=== PATIENT | female | born 1965 | race Caucasian/White ===

== ENCOUNTER 2017-07-18 17:25 | Inpatient (IN) | payer MEDICAID ==
[~2017-07-18] VITALS: Ht 167.6 cm; Wt 95.5 kg
[2017-07-18] MEDS ORDERED: METF500T4 PO (17:39)
[2017-07-18] MEDS ORDERED: HIGH BP MED (17:39)
[2017-07-18] MEDS ORDERED: LORazepam 2 MG/ML, 1ML IVPush ONE (18:00)
[2017-07-18] MEDS ORDERED: SODIUM CHLORIDE FLUSH 10ML SYR IVF ONE (18:00)
[2017-07-18] MEDS ORDERED: SODIUM CHLORIDE 0.9% 1,000ML IVBOLUS ONE (18:00)
[2017-07-18] MEDS ORDERED: LORazepam 2 MG/ML, 1ML ONE (18:02)
[2017-07-18 18:14] LABS: PH, VENOUS 7.364 pH (7.320-7.420)
[2017-07-18 18:14] LABS: CULTURE INDICATED? NO; MICROSCOPIC NOT IND
[2017-07-18 18:21] LABS: BASOPHILS # (AUTO) 0.03 x10^3/uL (0-0.1); BASOPHILS % (AUTO) 0 % (0-1); EOSINOPHILS % (AUTO) 1 % (1-7); LYMPHOCYTES # (AUTO) 2.34 x10^3/uL (1-3.4); LYMPHOCYTES % (AUTO) 17 % (22-44); MD NO; MEAN CORPUSCULAR HEMOGLOBIN 29.8 pg (27.0-34.8); MEAN CORPUSCULAR HGB CONC 33.5 g/dL (32.4-35.8); MEAN CORPUSCULAR VOLUME 88.8 fL (80-100); MEAN PLATELET VOLUME 10.6 fL (7.4-10.4); MONOCYTES # (AUTO) 0.69 x10^3/uL (0.2-0.8); MONOCYTES % (AUTO) 5 % (2-9); NEUTROPHILS # (AUTO) 10.35 x10^3/uL (1.8-6.8); NEUTROPHILS % (AUTO) 77 % (42-75); PLATELET COUNT 200 x10^3/uL (130-400); RED BLOOD COUNT 5.35 x10^6/uL (3.82-5.3); RED CELL DISTRIBUTION WIDTH 13.4 % (9.6-15.2)
[2017-07-18 18:24] LABS: ALANINE AMINOTRANSFERASE 32 U/L (12-78); ALBUMIN 3.2 g/dL (3.4-5.0); ANION GAP 11 mmol/L (5-15); CHLORIDE 99 mmol/L (98-107)
[2017-07-18 18:27] LABS: ALKALINE PHOSPHATASE 109 U/L (45-117); BILIRUBIN,TOTAL 0.8 mg/dL (0.2-1.0); TOTAL PROTEIN 7.1 g/dL (6.4-8.2)
[2017-07-18 18:43] LABS: ACETONE, SERUM Negative (Negative)
[2017-07-18] MEDS ORDERED: INSULIN REGULAR 100 UNITS/ML, 3ML VIAL ONE (19:16)
[2017-07-18] MEDS ORDERED: INSULIN REGULAR 100 UNITS/ML, 3ML VIAL IVPush ONE (19:30)
[2017-07-18 20:25] VITALS: BP 137/92
[2017-07-18] MEDS ORDERED: hydrALAzine 20 MG/ML, 1ML IVPush PRN (21:30)
[2017-07-18] MEDS ORDERED: POLYETHYLENE GLYCOL 17 GM PACKET PO PRN (21:30)
[2017-07-18] MEDS ORDERED: ONDANSETRON ODT 4 MG PO PRN (21:30)
[2017-07-18] MEDS: metFORMIN 500 MG TABLET PO SCH (22:32)
[2017-07-18] MEDS: INSULIN LISPRO 100 UNITS/ML, PEN SQ-INSULIN SCH (23:02)
[2017-07-19] MEDS: SODIUM CHLORIDE 0.9% 1,000 ML IV SCH ×4 (00:16→23:48)
[2017-07-19 01:12] VITALS: BP 147/95
[2017-07-19 07:10] VITALS: BP 182/125
[2017-07-19] MEDS: metFORMIN 500 MG TABLET PO SCH ×2 (07:55→21:28)
[2017-07-19] MEDS: INSULIN LISPRO 100 UNITS/ML, PEN SQ-INSULIN SCH ×4 (07:55→21:30)
[2017-07-19 10:23] VITALS: BP 181/104
[2017-07-19 11:47] LABS: AMPHETAMINE SCREEN, URINE Positive (Negative); BARBITURATE SCREEN, URINE Negative (Negative); BENZODIAZEPINE SCREEN, URINE Negative (Negative); CANNABINOID SCREEN, URINE Negative (Negative); COCAINE SCREEN, URINE Negative (Negative); METHADONE SCREEN, URINE Negative (Negative); OPIATE SCREEN, URINE Negative (Negative)
[2017-07-19] MEDS: ENALAPRILAT 1.25 MG/ML, 2ML IV PRN (11:47)
[2017-07-19 12:36] LABS: HEMOGLOBIN A1C 11.6 % (4.2-6.3)
[2017-07-19 12:50] VITALS: BP 171/106
[2017-07-19 12:54] VITALS: BP 171/106
[2017-07-19] MEDS ORDERED: LISI-420 PO (15:46)
[2017-07-19] MEDS ORDERED: METF850T2 PO (15:46)
[2017-07-19] MEDS ORDERED: HYDR-3240 PO (15:46)
[2017-07-19] MEDS ORDERED: ATOR20TA9 PO (15:46)
[2017-07-19] MEDS ORDERED: ASPI-515 PO (15:46)
[2017-07-19] MEDS ORDERED: CYCL-259 PO (15:46)
[2017-07-19 20:01] VITALS: BP 146/89
[2017-07-19] MEDS ORDERED: INSULIN GLARGINE 100 UNITS/ML, PEN SQ-INSULIN SCH (21:00)
[2017-07-19] MEDS: ACETAMINOPHEN 325 MG TABLET PO PRN (21:42)
[2017-07-20 01:39] VITALS: BP 193/119
[2017-07-20 01:40] VITALS: BP 194/129
[2017-07-20] MEDS: ENALAPRILAT 1.25 MG/ML, 2ML IV PRN (01:50)
[2017-07-20 04:38] VITALS: BP 156/95
[2017-07-20 05:45] LABS: BASOPHILS # (AUTO) 0.02 x10^3/uL (0-0.1); BASOPHILS % (AUTO) 0 % (0-1); EOSINOPHILS # (AUTO) 0.14 x10^3/uL (0-0.4); EOSINOPHILS % (AUTO) 2 % (1-7); LYMPHOCYTES # (AUTO) 2.09 x10^3/uL (1-3.4); LYMPHOCYTES % (AUTO) 28 % (22-44); MD NO; MEAN CORPUSCULAR HEMOGLOBIN 29.9 pg (27.0-34.8); MEAN CORPUSCULAR HGB CONC 33.7 g/dL (32.4-35.8); MEAN CORPUSCULAR VOLUME 88.8 fL (80-100); MEAN PLATELET VOLUME 10.1 fL (7.4-10.4); MONOCYTES # (AUTO) 0.45 x10^3/uL (0.2-0.8); MONOCYTES % (AUTO) 6 % (2-9); NEUTROPHILS # (AUTO) 4.68 x10^3/uL (1.8-6.8); NEUTROPHILS % (AUTO) 63 % (42-75); PLATELET COUNT 157 x10^3/uL (130-400); RED CELL DISTRIBUTION WIDTH 13.1 % (9.6-15.2)
[2017-07-20 05:51] LABS: ANION GAP 7 mmol/L (5-15); CALCIUM 7.7 mg/dL (8.5-10.1); CHLORIDE 109 mmol/L (98-107); CREATININE 0.44 mg/dL (0.55-1.02)
[2017-07-20] MEDS: SODIUM CHLORIDE 0.9% 1,000 ML IV SCH (06:29)
[2017-07-20 07:08] VITALS: BP 160/92
[2017-07-20] MEDS: INSULIN LISPRO 100 UNITS/ML, PEN SQ-INSULIN SCH ×2 (08:15→11:55)
[2017-07-20] MEDS: ACETAMINOPHEN 325 MG TABLET PO PRN (08:16)
[2017-07-20] MEDS ORDERED: LISINOPRIL 20 MG TABLET PO SCH (09:00)
[2017-07-20] MEDS ORDERED: ASPIRIN 81 MG TABLET EC PO SCH (09:00)
[2017-07-20] MEDS ORDERED: metFORMIN 850 MG TABLET PO SCH (09:00)
[2017-07-20] MEDS ORDERED: METF850T2 PO (10:23)
[2017-07-20] MEDS ORDERED: LISI-420 PO (10:23)
[2017-07-20] MEDS ORDERED: INSU100I11 SQ-INSULIN (10:23)
[2017-07-20] MEDS ORDERED: INSU100I13 SQ-INSULIN (10:23)
[2017-07-20] MEDS ORDERED: ATORVASTATIN 20 MG TABLET PO SCH (21:00)
== END 2017-07-20 14:43 | disposition home or self-care (01) | DRG 639 ==
LOC: ED 18:30 → SUATTDRO 20:01 → INTOOBSV 20:17 → EDIP 20:17 → 3NE 20:18 → OBSVTOIN 07-19 15:31
PROVIDERS: ADMIT Hospitalist; ATTEND Hospitalist
DX: E11.65 Type 2 diabetes mellitus with hyperglycemia (principal); E66.9 Obesity, unspecified; F15.10 Other stimulant abuse, uncomplicated; I10 Essential (primary) hypertension; E78.5 Hyperlipidemia, unspecified; F17.210 Nicotine dependence, cigarettes, uncomplicated; F41.1 Generalized anxiety disorder; Z79.899 Other long term (current) drug therapy; Z79.82 Long term (current) use of aspirin; Z91.19 Patient's noncompliance with other medical treatment and regimen; Z79.4 Long term (current) use of insulin; Z83.3 Family history of diabetes mellitus; Z68.34 Body mass index [BMI] 34.0-34.9, adult
CPT/HCPCS: 36415; 71045; 80048; 80053; 80307; 81003; 82010; 82803; 82962; 83036; 85025; 96361; 96374; 99285; G0378; J0360; J1815; J2060; J7030